=== PATIENT | male | born 1990 | race Caucasian/White ===

== ENCOUNTER 2017-02-28 17:37 | Emergency (ER) | payer SELFPAY ==
[2017-03-03] MEDS ORDERED: ADDERALL20 MG PO (19:05)
[2017-03-03] MEDS ORDERED: PROZAC40 MG PO (19:05)
[2017-03-03] MEDS ORDERED: TRAZODONE HCL300 MG PO (19:05)
[2017-03-03] MEDS ORDERED: XANAX DPS1 MG PO (19:05)
[2017-03-03] MEDS ORDERED: SEROQUEL50 MG PO (19:06)
[2017-03-03] MEDS ORDERED: AMBIEN DPS10 MG PO (19:06)
[2017-03-03] MEDS ORDERED: LAMICTAL DPS25 MG PO (19:06)
--- NOTE | 2017-03-09 13:49 | ER ---
ADMIT: 02/28/2017 RM/LOC: [facility] MR#: [id number] [address] [facility] [place], [place] [address] JEFFREY JENKINS Tray [address] [facility] [address] [place] [address] Emergency Room Report SEX: M AGE: 27 : 1990 DATE: 02/28/2017 ADDENDUM: CHIEF COMPLAINT: Seizure disorder. HISTORY OF PRESENT ILLNESS: This is a 27-year-old, who was actually brought in by 1 of our police officers. He was riding in the front seat with the police office. He was taken to the [facility] because he is homeless and he is new to [place]. He says he is employed here, but he was kicked out by his girlfriend. He did not ever see an active seizure while here in the emergency room. He just said he kept feeling like he is going to have a seizure. We gave him 1 mg of Ativan and a 1000 mg of Keppra. He claims that he is on Keppra, when we finally did receive his med list that was not on his med list, but he is on Lamictal. Also, was prescribed : 1. Adderall. 2. Prozac. 3. Xanax. 4. Ambien in the past. I told him at this time I am only going to give him Lamictal. We are going to work on give him voucher for 2 weeks' worth. I told him he could follow up with [facility] or [facility] for continual care. CLINICAL IMPRESSION: 1. Seizure disorder. 2. Out of meds. DISPOSITION: Send him with Lamictal 50 mg one tab daily, dispensing #14. From here, we did give him a cab ride to a [facility] for housing tonight and he will worm picker his Lamictal tomorrow. CONRADO Adkins / Teto Ramires MD / ernesto JOB #: [id number] CC: Babar Jimenez MD, Attending Physician Jordan Schwartz MD, Family Physician
== END 2017-02-28 21:02 | disposition home or self-care (01) ==
LOC: ER 17:37
DX: G40.909 Epilepsy, unspecified, not intractable, without status epilepticus (principal); I10 Essential (primary) hypertension; F17.210 Nicotine dependence, cigarettes, uncomplicated; Z79.899 Other long term (current) drug therapy

== ENCOUNTER 2017-03-01 06:24 | Observation (INO) | payer SELFPAY ==
[~2017-03-01] VITALS: Ht 185.4 cm; Wt 65.0 kg
--- NOTE | ~2017-03-01 | CO ---
ADMIT: 03/01/2017 RM/LOC: [address] [facility] MR#: [id number] [address] [address] [place] [address] Consultation SEX: M AGE: 27 : 1990 DATE OF CONSULTATION: 03/01/2017 ATTENDING PHYSICIAN: Vega Unger CONSULTING PHYSICIAN: David Chowdhury MD IDENTIFYING DATA: Lee is a 27-year-old single. He is [place] male who recently moved to [place], admitted to [place] for seizures, consultation requested by Dr. Unger to rule out any schizophrenia or schizophreniform disorder. The patient seen through telemedicine. 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 He states that he does not remember much about exactly what happened, but that is what he has been told. He states that he has been off his psychrotrophic medications since moving to [place] as he does not have a provider in [place]. He was taking Xanax, Adderall, Lamictal, Trazodone, Prozac, and Ambien prior to that. Withdrawal from these medications could have contributed some to his seizure as well. Denies feeling hopeless or helpless at this time. Does feel anxious, lot of it related to him being off his medications. Denies any racing thoughts of feeling high. No strange or bizarre experiences. No suicidal thoughts. No thoughts of hurting anybody else. PAST PSYCHIATRIC HISTORY: The patient had 1 hospitalization last year at [facility] for depression. Denies any history of any manic episodes or psychotic spectrum disorders ever. He has struggled with ADHD symptoms and also with anxiety for which he is on medication and has done well on his current combination of medications. PAST MEDICAL AND SURGICAL HISTORY: History of seizure, the first one he had was about 7 years, they were grand mal type of seizures. He has had multiple concussions in the past as well. ALLERGIES: NO KNOWN DRUG ALLERGIES. DRUG AND ALCOHOL HISTORY: Has been through alcohol rehab once. Never used any drugs. Currently denies any alcohol use. PERSONAL AND SOCIAL HISTORY: Originally from [place], born and brought up there. No history of any developmental problem. No history of any physical or sexual trauma growing up. 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 MENTAL STATUS EXAM: The patient is alert, awake, oriented to time, place and person. He is cooperative with good hygiene and fair grooming, appropriately dressed. Good eye contact. Does not exhibit any psychomotor abnormalities. ADMIT: 03/01/2017 RM/LOC: 511 [facility] MR#: [id number] [address] [place] [id number] [place] [address] Consultation SEX: M AGE: 27 : 1990 No rigidity or tremor. His affect is of normal range and intensity is related and appropriate. The mood is anxious. Speech is fluent and spontaneous. Normal rate. No formal thought disorder. No suicidal or homicidal ideation. No psychosis. Fear and insight, fair judgment. The patient has some problem with short-term memory. No problem with concentration. ASSESSMENT: 1. Mood disorder due to general medical condition, which is seizure disorder, major depression like episode. 2. Generalized anxiety disorder. 3. Attention deficit hyperactivity disorder, inattention type. 4. Alcohol use disorder in early full remission, moderate. PLAN: At this time, I would recommend that the patient be re-initiated back on his psychotropic medications. The staff has been able to obtain his old records which state that he has been on Xanax 1 mg 4 times a day, Adderall 20 mg 4 times a day, I will recommend changing that to 3 times a day as it can interfere with sleep. Lamictal, he is 50 mg once daily, I will recommend 50 mg twice daily to help with moods and with seizures. Trazodone is 300 mg once daily at bedtime, Ambien at 10 bedtime and Prozac 40 mg bedtime. This should help with his anxiety, with his moods, and even with his seizure disorder as the current seizure could have been related to withdrawing from these medications. The patient does not exhibit any symptoms or any history of any chronic psychotic spectrum disorders at this time. He is currently safe, does not need any inpatient psychiatric followup, but does need to be set up for psychiatric followup on an outpatient basis. The patient is in agreement with that. Thanks for this consultation. David Chowdhury MD/ ernesto JOB #: [id number] CC: Vega Unger, Attending Physician Vega Unger, Family Physician
--- NOTE | 2017-03-01 19:05 | ER ---
ADMIT: 03/01/2017 RM/LOC: ER [facility] MR#: [id number] [address] [facility] [address] [place], [place] [address] JEFFREY JENKINS Tray [address] [facility] [address] [place] [address] Emergency Room Report SEX: M AGE: 27 : 1990 DATE: 03/01/2017 The patient is a 27-year-old male with past medical history of allegedly anxiety and seizure disorder, who was brought to the ER from [facility], allegedly unwitnessed seizure multiple times during the night. The patient could not recall anything and states that he could have had seizure. The patient was here in the ER yesterday and was given the dose of Lamictal and was discharged to home. The patient denies any recent head trauma, and states that he has a history of traumatic brain injury, and he is on Lamictal chronically. In the ER, the patient was oriented to place, person, and time, but sometimes he acted strange. CT of the head and urine tox was ordered. CBC showed slight elevation of white blood count at 13.9 with left shift. PHYSICAL EXAMINATION: GENERAL: The patient is afebrile. NECK: Soft. The patient has no meningismus. CHEST: Clear. ABDOMEN: Soft. The rest of the physical exam is noncontributory. LABORATORY DATA: Potassium was 2.8, sodium was 136, and glucose of 129, creatinine was 2.5. I did not find any previous information about previous creatinine. Considering patient's age, 27, the patient was consulted with the Family Medicine for HI, alleged seizure and question of altered mental status. The patient was signed out to the next shift to follow up with the CT of the brain, and to follow up with the urine tox, and to consult with Family Medicine Practice. Teto Ramires MD/ ernesto JOB #: [id number] CC: Teto Ramires MD, Attending Physician
[2017-03-03] MEDS ORDERED: XANAX DPS1 MG PO (19:05)
[2017-03-03] MEDS ORDERED: TRAZODONE HCL300 MG PO (19:05)
[2017-03-03] MEDS ORDERED: PROZAC40 MG PO (19:05)
[2017-03-03] MEDS ORDERED: ADDERALL20 MG PO (19:05)
[2017-03-03] MEDS ORDERED: LAMICTAL DPS25 MG PO (19:06)
[2017-03-03] MEDS ORDERED: SEROQUEL50 MG PO (19:06)
[2017-03-03] MEDS ORDERED: AMBIEN DPS10 MG PO (19:06)
--- NOTE | 2017-03-12 15:25 | HP ---
ADMIT: 03/01/2017 RM/LOC: 511 [facility] MR#: [id number] [address] [address] [facility]AN [facility] [place] [address] History and Physical SEX: M AGE: 27 : 1990 DATE OF SERVICE: CHIEF COMPLAINT: Fran is a 27-year-old, single, white male, from [place], admitted to [facility] through the ER and [facility]. To make a long story short, he is single, residing here in town at [facility]. He has alleged history of longstanding seizure disorders. He had previously been on Lamictal, but states he has not taken it for quite some time. He states he has been having recurrent seizures and presents to the ER for evaluation. I was called to admit him for treatment for his seizures via [facility]. At this time, the patient is alert. He is interactive and is pleasant. He has the aura underlying mental illness. He is very anxious, constantly in movement, stating aches and needs pain medications. States that he has had recurrent seizures. He has a dysconjugate gaze at times. PAST MEDICAL HISTORY: Operations include a prior incision with drainage of an MRSA on his right hand. Also, additionally include long-standing history of seizures, treated with Keppra in [place] and then later treated with Lamictal, but he states he has been out of it for a month. He additionally has a history of alcohol use disorder, cannabis use disorder, and opiate use disorder, and has been through treatment at [place] in 2006. MEDICATIONS: Lamictal, dosing unknown. ALLERGIES: NONE KNOWN. SOCIAL HISTORY: Is that of a 27-year-old, single, white male. He has alleged GED. He denies drug or alcohol use at this time. He is currently residing at [facility], previously worked at [employer] in the kitchen, doing dishes. FAMILY HISTORY: Unknown and noncontributory. REVIEW OF SYSTEMS: Remarkable for his underlying mental illness, obvious anxiety, multiple bruises with a history of seizures. Remainder of review of systems is negative. PHYSICAL EXAMINATION: VITAL SIGNS: Temperature 97.4, pulse 83, respiratory rate 16, blood pressure 135/41, saturating 100% on room air. GENERAL APPEARANCE: A 27-year-old male, who is alert, oriented, appears his stated age, with the aura of mental illness. He is very irritable and agitated. States that he aches all over from his seizures and requests pain medications. He has a dysconjugate gaze at times. Was oriented to time, place, and person. HEENT: Pupils are reactive. Mucous membranes are moist. Dentition, good repair. NECK: Normal. HEART: Regular without murmur. LUNGS: Clear. ABDOMEN: Soft. No obvious hepatosplenomegaly. ADMIT: 03/01/2017 RM/LOC: 511 [facility] MR#: [id number] [address] [place] [id number] [place] [address] History and Physical SEX: M AGE: 27 : 1990 AND RECTAL: Deferred. EXTREMITIES: Revealed multiple bruises, contusions, and abrasions on his upper and lower extremities. NEURO: Grossly normal light touch, strength, and DTRs. LABORATORY AND X-RAY DATA: CT of the brain is normal. Labs include sodium 136, potassium 2.8, BUN of 6, creatinine 2.5 with glucose 129 in the ER. AST and ALT are normal. Albumin and protein are normal. Alcohol is 9. White count of 13.9, hemoglobin 16.2, platelet count of 164,000. Drug screen is negative. Lactic acid 1.5. ASSESSMENT: 1. Seizure disorder. 2. Hypokalemia. 3. Prerenal azotemia. Other problems include: 1. History of cannabis use disorder. 2. Alcohol use disorder. 3. Opiate use disorder. 4. Depression. 5. Mental illness with rule out schizophreniform diagnoses. PLAN: We will admit him for IV fluids, rehydration, and potassium replacement therapy. We will hold anti-inflammatories due to his renal impairment. We will start him on Seroquel for his underlying mental illness and BuSpar for his anxiety along with Lexapro for his depression. Do serial monitoring of his labs and electrolytes. IV fluids and electrolytes are ordered. We will attempt to obtain Psychiatry and Neurology consultations given his underlying mental illness and alleged seizure disorder. We will attempt to obtain his old records as well and proceed with further evaluation and management based on course during hospitalization. Please see his hospital record for the details. Vega Unger MD/ ernesto JOB #: [id number] CC: Vega Unger, Attending Physician Vega Unger, Family Physician
--- NOTE | 2017-03-21 10:27 | EEG ---
ADMIT: 03/01/2017 RM/LOC: 511 [facility] MR#: [id number] [address] [address] [place] [address] Inpatient EEG SEX: M AGE: 27 : 1990 DATE: 03/01/2017 EEG NUMBER: [id number]. HISTORY OF PRESENT ILLNESS: The patient is a 27-year-old man with a history of potential seizure-like episode. This is a routine 21 channel digital EEG recording performed on a patient who was awake and drowsy in various portions of the study. It is to be noted that the patient was noncompliant during the test. The study is performed using the 10/20 international electrode placement system. During wakefulness, the background activity is fairly well organized, consisting of regular and symmetrical medium amplitude activity up to 9 Hz, which is seen posteriorly and attenuates with eye opening. In addition, moderate amount of low-amplitude fast activity seen anteriorly. There were no focal slowing's nor epileptiform discharges seen in this recording. Great portion of the study is degraded by muscle motion artifacts and losing contact of electrodes as the patient was noncompliant and moving excessively in the bed. Hyperventilation was performed with poor effort, did not change the background rhythm. Photic stimulation performed at 1-33 Hz frequency elicited bilateral occipital driving response. IMPRESSION: This is a normal awake EEG recording. There were no seizure-like potentials seen. Unfortunately, a great portion of the study is degraded by motion artifacts as the patient was poorly compliant with the test. COMMENTS: Normal cardiac rhythm is noted throughout this recording. Ascencion Marquez MD/ ernesto JOB #: [id number] CC: Vega Unger MD, Attending Physician Vega Unger MD, Family Physician
== END 2017-03-02 16:20 | disposition other institution (70) ==
LOC: ER 06:24 → 5MS 09:45
PROVIDERS: ADMIT Family Medicine
DX: G40.909 Epilepsy, unspecified, not intractable, without status epilepticus (principal); E87.6 Hypokalemia; R79.89 Other specified abnormal findings of blood chemistry; N18.9 Chronic kidney disease, unspecified; F10.20 Alcohol dependence, uncomplicated; F90.1 Attention-deficit hyperactivity disorder, predominantly hyperactive type; F32.9 Major depressive disorder, single episode, unspecified; F39 Unspecified mood [affective] disorder; Z79.899 Other long term (current) drug therapy

== ENCOUNTER 2017-03-21 16:46 | Emergency (ER) | payer SELFPAY ==
[~2017-03-21 16:46] MED LIST: ADDERALL20 MG PO; AMBIEN DPS10 MG PO; LAMICTAL DPS25 MG PO; PROZAC40 MG PO; SEROQUEL50 MG PO; TRAZODONE HCL300 MG PO; XANAX DPS1 MG PO
== END 2017-03-21 18:09 | disposition home or self-care (01) ==
DX: G40.909 Epilepsy, unspecified, not intractable, without status epilepticus (principal); Z76.0 Encounter for issue of repeat prescription